=== PATIENT | female | born 1990 | race African-American/Black ===

== ENCOUNTER 2016-12-23 12:51 | Emergency (ER) | payer MEDICAID, OTHER ==
[~2016-12-23] VITALS: Ht 175.3 cm; Wt 121.0 kg
[~2016-12-23 12:51] MED LIST: BACT800T5 PO; MIREIUD I-UTERINE
[2016-12-23 12:52] VITALS: BP 136/87; PULSE 64; RESP 16; TEMP 99.4; O2SAT 98
--- NOTE | 2016-12-23 14:10 | PD ---
HPI Chief Complaint: Abdominal Pain Time Seen by Provider: 13:27 Travel History International Travel<30 days: No Contact w/Intl Traveler<30days: No Traveled to known affect area: No History of Present Illness HPI This is a 26-year-old female who presents to the emergency department with abdominal discomfort. She says is been going on for about 3 days more constant and has been bothering her for a couple weeks intermittently. The pain is mostly in her right upper quadrant right over her surgical scar from her ventral hernia repair. She is afraid when the strings from her hernia pulled. She says the pain is like a stabbing pain, worse in the mornings, with no associated nausea, vomiting, fevers or chills. She denies any constipation or diarrhea and denies any vaginal discharge or dysuria. PFSH Past Medical History Medical History: Denies Significant Hx Cancer: No Cardiovascular Problems: No Diminished Hearing: No Gastrointestinal Disorders: Yes Genitourinary: No Hiatal Hernia: Yes Musculoskeletal: No Neurologic: No Psychiatric: No Reproductive: No Respiratory: No Immunizations Current: Yes Tetanus Vaccination: > 5 Years Influenza Vaccination: No ?: Not LMP: iud : 2 Para: 2 Past Surgical History Abdominal Surgery: Yes (HERNIA REPAIR) Section: Yes (X1) Other Surgery: No Social History Alcohol Use: No Tobacco Use: No Substance Use: No Allergies-Medications (Allergen,Severity, Reaction): Coded Allergies: Amoxil (Verified Allergy, Severe, rash, 12/23/16) Reported Meds & Prescriptions Reported Meds & Active Scripts Active Reported Mirena (Levonorgestrel (Iud)) 20 Mcg/24 Hr Iud 52 Mg I-UTERINE ONCE Review of Systems Except as stated in HPI: all other systems reviewed are Neg Physical Exam Narrative GENERAL:Well appearing, no acute distress SKIN: Focused skin assessment warm and dry. HEAD: Atraumatic. Normocephalic. EYES: Pupils equal and round. No injection or drainage. ENT: Moist mucous membranes NECK: Trachea midline. CARDIOVASCULAR: Regular rate and rhythm. No murmur appreciated. RESPIRATORY: Clear to auscultation. Breath sounds equal bilaterally. GASTROINTESTINAL: Abdomen soft, tender to palpation in the right upper quadrant with no rebound/guarding. MUSCULOSKELETAL: No obvious deformities. NEUROLOGICAL: Awake and alert. No obvious cranial nerve deficits. Moving all extremities PSYCHIATRIC: Appropriate mood and affect; insight and judgment normal. Data Data Last Documented VS Vital Signs Date Time Temp Pulse Resp B/P Pulse Ox O2 Delivery O2 Flow Rate FiO2 12/23/16 13:45 18 12/23/16 12:52 99.4 64 136/87 98 Room Air Orders Complete Blood Count With Diff (12/23/16 13:42) Comprehensive Metabolic Panel (12/23/16 13:42) ^ Insert Iv (12/23/16 13:42) Lipase (12/23/16 13:42) Ed Urine Pregnancytest Poc (12/23/16 13:42) Ct Abd/Pel W Iv Contrast(Rout) (12/23/16 ) Iohexol 350 Inj (Omnipaque 350 Inj) (12/23/16 14:39) Labs Laboratory Tests Test 12/23/16 13:55 White Blood Count 5.0 TH/MM3 Red Blood Count 4.28 MIL/MM3 Hemoglobin 12.4 GM/DL Hematocrit 35.9 % Mean Corpuscular Volume 83.8 FL Mean Corpuscular Hemoglobin 28.9 PG Mean Corpuscular Hemoglobin 34.5 % Concent Red Cell Distribution Width 13.4 % Platelet Count 282 TH/MM3 Mean Platelet Volume 8.1 FL Neutrophils (%) (Auto) 70.4 % Lymphocytes (%) (Auto) 17.5 % Monocytes (%) (Auto) 8.8 % Eosinophils (%) (Auto) 2.8 % Basophils (%) (Auto) 0.5 % Neutrophils # (Auto) 3.5 TH/MM3 Lymphocytes # (Auto) 0.9 TH/MM3 Monocytes # (Auto) 0.4 TH/MM3 Eosinophils # (Auto) 0.1 TH/MM3 Basophils # (Auto) 0.0 TH/MM3 CBC Comment DIFF FINAL Differential Comment Sodium Level 139 MEQ/L Potassium Level 4.3 MEQ/L Chloride Level 104 MEQ/L Carbon Dioxide Level 27.2 MEQ/L Anion Gap 8 MEQ/L Blood Urea Nitrogen 13 MG/DL Creatinine 0.77 MG/DL Estimat Glomerular Filtration 108 ML/MIN Rate Random Glucose 75 MG/DL Calcium Level 9.0 MG/DL Total Bilirubin 0.3 MG/DL Aspartate Amino Transf 27 U/L (AST/SGOT) Alanine Aminotransferase 20 U/L (ALT/SGPT) Alkaline Phosphatase 76 U/L Total Protein 8.0 GM/DL Albumin 3.6 GM/DL Lipase 71 U/L [facility] Medical Decision Making Medical Screen Exam Complete: Yes Emergency Medical Condition: Yes Interpretation(s) Temperature is 99.4, no tachycardia, normotensive No leukocytosis Electrolytes are reassuring Lipase is normal CT abdomen and pelvis: No acute process Differential Diagnosis Hernia, cholelithiasis, cholecystitis, adhesions Narrative Course This is a 26-year-old female who presents to the emergency department with right upper quadrant abdominal pain that's been worsening over the past several days. She has a history of ventral hernia repair and was concerned or may be a problem with her repair. She is very well-appearing with a fairly benign exam. Labs are obtained which are reassuring. CT abdomen and pelvis is unremarkable. I think she can safely be discharged and follow-up with her primary care physician. I suspect she may have some pain related to surgical adhesions. Diagnosis Primary Impression: Abdominal pain Qualified Code: R10.11 - Right upper quadrant abdominal pain Patient Instructions: General Instructions Additional Instructions: If you develop severe or worsening abdominal pain, fever>100.4, persistent vomiting or inability to eat or drink return to the emergency department immediately. Follow up with your primary care physician in 1-2 days for a check-up. Med/Other Pt SpecificInfo: No Change to Meds Disposition: 01 DISCHARGE HOME Condition: Stable Carri Victoria MD Dec 23, 2016 14:10
[2016-12-23 14:22] LABS: AUTOMATED NEUTROPHIL # 3.5 TH/MM3 (1.8-7.7); BASOPHIL % 0.5 % (0.0-2.0); EOSINOPHIL # 0.1 TH/MM3 (0-0.4); EOSINOPHIL % 2.8 % (0.0-4.0); HEMATOCRIT 35.9 % (35.0-46.0); HEMO FLAGS DIFF FINAL; LYMPH % 17.5 % (9.0-44.0); LYMPHOCYTE # 0.9 TH/MM3 (1.0-4.8); MEAN CELL VOLUME 83.8 FL (80.0-100.0); MEAN CORPUSCULAR HEMOGLOBIN 28.9 PG (27.0-34.0); MEAN CORPUSCULAR HGB CONC 34.5 % (32.0-36.0); MONO % 8.8 % (0.0-8.0); NEUT % 70.4 % (16.0-70.0); PLATELET COUNT 282 TH/MM3 (150-450); RED BLOOD COUNT 4.28 MIL/MM3 (4.00-5.30); RED CELL DISTRIBUTION WIDTH 13.4 % (11.6-17.2)
[2016-12-23] MEDS ORDERED: IOHEXOL 350 MG/ML 10 ML VIAL (for RAD DIAG) IV ONE (14:39)
[2016-12-23 14:47] LABS: ALKALINE PHOSPHATASE 76 U/L (45-117); TOTAL BILIRUBIN ADULT 0.3 MG/DL (0.2-1.0)
[2016-12-23 15:05] LABS: ALT (GPT) 20 U/L (10-53); ANION GAP 8 MEQ/L (5-15); AST (GOT) 27 U/L (15-37); BICARBONATE 27.2 MEQ/L (21.0-32.0); BLOOD UREA NITROGEN 13 MG/DL (7-18); CHLORIDE 104 MEQ/L (98-107); GLOMERULAR FILTRATION RATE 108 ML/MIN (>89); SODIUM (NA) 139 MEQ/L (136-145)
[2016-12-23 15:07] LABS: POTASSIUM 4.3 MEQ/L (3.5-5.1)
--- NOTE | 2016-12-23 15:10 | RADRPT ---
EXAM DATE/TIME: 12/23/2016 14:34 [facility] COMPARISON: CT ABDOMEN & PELVIS W CONTRAST, July 08, 2014, 12:13. INDICATIONS : Bilateral upper abdomen pain for one day. IV CONTRAST: 98 cc Omnipaque 350 (iohexol) IV ORAL CONTRAST: No oral contrast ingested. RADIATION DOSE: 12.55 CTDIvol (mGy) MEDICAL HISTORY : Non-responsive. Pre diabetes. SURGICAL HISTORY : Hysterectomy. Hiatal hernia repair. ENCOUNTER: Initial ACUITY: 1 day PAIN SCALE: 7/10 LOCATION: Bilateral upper quadrant TECHNIQUE: Volumetric scanning of the abdomen and pelvis was performed. Using automated exposure control and ad justment of the mA and/or kV according to patient size, radiation dose was kept as low as reasonably achievable to obtain optimal diagnostic quality images. DICOM format image data is available electro nically for review and comparison. FINDINGS: LOWER LUNGS: The visualized lower lungs are clear. LIVER: Homogeneous density without lesion. There is no dilation of the biliary tree. No calcified gallston es. SPLEEN: Normal size without lesion. PANCREAS: Within normal limits. KIDNEYS: Normal in size and shape. There is no mass, stone or hydronephrosis. ADRENAL GLANDS: Within normal limits. VASCULAR: There is no aortic aneurysm. BOWEL/MESENTERY: The stomach, small bowel, and colon demonstrate no acute abnormality. There is no free intraperitone al air or fluid. The appendix is unremarkable. No inflammatory changes. ABDOMINAL WALL: There is evidence of previous hernia repair which appears to be grossly intact. RETROPERITONEUM: There is no lymphadenopathy. BLADDER: No wall thickening or mass. REPRODUCTIVE: Within normal limits. There is an IUD in uterus. INGUINAL: There is no lymphadenopathy or hernia. MUSCULOSKELETAL: Within normal limits for patient age. CONCLUSION: 1. Unremarkable CT scan of the abdomen and pelvis. No acute pathology. 2. IUD in uterus. 3. Status post anterior abdominal wall hernia repair. Sarmad Amor MD on December 23, 2016 at 15:06 Board Certified Radiologist. This report was verified electronically.
[2016-12-24] MEDS ORDERED: ERGO1CAP30 PO (12:37)
== END 2016-12-23 15:48 | disposition home or self-care (01) ==
LOC: NEPD 12:51
DX: R10.11 Right upper quadrant pain (principal)
CPT/HCPCS: 74177; 80053; 83690; 84703; 85025; 99285; Q9967